=== PATIENT | male | born 1985 | race American Indian/Alaskan Native ===

== ENCOUNTER 2020-07-05 19:36 | Emergency (ER) | payer MEDICAID ==
[2020-07-05 19:46] VITALS: BP 112/72
--- NOTE | 2020-07-05 21:15 | Emergency Department Report ---
Chief Complaint: Skin Rash Stated Complaint: SCALP ICHING - HPI History of Present Illness: 34-year-old -[place] male presents to the emergency room complaining of itchy scalp for years. Patient denies any discharge from the scalp no smell. Patient has not followed up with any provider but does have a primary care provider. - Exam Vital Signs: Vital Signs 07/05/20 19:42 Temperature 99.2 F Pulse Rate 96 H Respiratory 16 Rate Blood Pressure 112/72 O2 Sat by Pulse 100 Oximetry Physical Exam: Patient is alert and oriented x3 no acute distress nontoxic in appearance Patient is ambulatory without difficulties Nonlabored breathing Vital signs are stable MSE screening note: Focused history and physical exam performed. Due to findings the following was ordered: 34-year-old -[place] male presents to the emergency room complaining of itchy scalp for years. Patient denies any discharge from the scalp no smell. Patient has not followed up with any provider but does have a primary care provider. ED Disposition for MSE Disposition: MED SCREENING EXAM-LEFT Is pt being admited?: No Does the pt Need Aspirin: No Condition: Stable Additional Instructions: Follow-up with a cotton header. Try terbinafine shampoo. Referrals: PRIMARY CARE, [Primary Care Provider] - 3-5 Days [facility] [Provider Group] - 3-5 Days
== END 2020-07-05 22:00 | disposition left against medical advice (07) ==
LOC: ED 19:36
DX: L29.9 Pruritus, unspecified (principal); Z53.21 Procedure and treatment not carried out due to patient leaving prior to being seen by health care provider